=== PATIENT | male | born 1995 | race Caucasian/White ===

== ENCOUNTER → 2018-01-16 | Outpatient (REF) | payer OTHER ==
[2018-01-16 16:30] LABS: CALCIUM LEVEL 9.8 MG/DL (8.5-10.1)
[2018-01-19 00:57] LABS: VITAMIN D 1,25 DIHYDROXY 48.9 pg/mL (19.9-79.3)
== END ==
LOC: M LAB REF 15:34
DX: S82.62XD Displaced fracture of lateral malleolus of left fibula, subsequent encounter for closed fracture with routine healing (principal)
CPT/HCPCS: 82310

== ENCOUNTER → 2018-11-05 | Outpatient (REF) | payer OTHER | LOC: M LAB REF 16:27 | PROVIDERS: ATTEND Nurse Practitioner Family | DX: E07.9 Disorder of thyroid, unspecified (principal) ==

== ENCOUNTER → 2020-07-08 | Outpatient (CLI) | payer OTHER ==
--- NOTE | 2020-07-08 15:45 | REP ---
INDICATION: PAIN. COMPARISON: None. TECHNIQUE: Four views of the right hand are provided. FINDINGS: Four views of the right hand demonstrate overall normal mineralization. There is a nondisplaced acute fracture at the base of the 5th metacarpal however. There is associated soft tissue swelling. No other fracture is seen.. No opaque foreign body noted.. . IMPRESSION: Nondisplaced acute fracture at the base, proximal end, of the 5th metacarpal.. <Electronically signed by Harjeet Peguero > 07/08/20 2280
== END ==
LOC: M WUC 09:34
PROVIDERS: ATTEND Physician Assistant
DX: S62.346A Nondisplaced fracture of base of fifth metacarpal bone, right hand, initial encounter for closed fracture (principal); X58.XXXA Exposure to other specified factors, initial encounter; Y92.9 Unspecified place or not applicable; Y99.9 Unspecified external cause status